=== PATIENT | female | born 1995 | race African-American/Black ===

== ENCOUNTER 2019-11-11 13:59 | Emergency (ER) | payer OTHER ==
[2019-11-11 14:10] VITALS: PULSE 98; BMI 33.5
[2019-11-11] MEDS ORDERED: SODIUM CHLORIDE 1,000 ML IV STA (15:04)
[2019-11-11] MEDS ORDERED: ACETAMINOPHEN 1000 MG/100 ML VIAL (NON FORMULARY) IVPB ONE (15:04)
--- NOTE | 2019-11-11 15:21 | PDOC ---
History of Present Illness - General Chief Complaint: Headache Stated Complaint: CHRONIC HEADACHE Time Seen by Provider: 11/11/19 14:51 History Source: Patient Exam Limitations: No Limitations - History of Present Illness Initial Comments: 11/11/19 15:06 23-year-old female presents to the ED with complaints of frontal throbbing pressure for the past 3 days without resolution. Patient states has not taken anything for the pain and continues to drink fluids. Patient is currently 34 weeks with her last ultrasound being at 20 weeks of gestation. Patient denies fever, chills, sinus pressure, visual disturbances, nausea, vomiting, recent travel, or recent illness. Timing/Duration: reports: other Severity: Yes: moderate Associated Symptoms: reports: other Past History - Travel Traveled outside of the country in the last 30 days: No Close contact w/someone who was outside of country & ill: No - Past Medical History Allergies/Adverse Reactions: Allergies Allergy/AdvReac Type Severity Reaction Status Date / Time peanut Allergy Verified 11/11/19 16:04 CVA: No COPD: No CHF: No DVT: No Dementia: No - Immunization History Immunization Up to Date: Yes - Psycho Social/Smoking Cessation Hx Smoking History: Never smoked Hx Alcohol Use: No Drug/Substance Use Hx: No Patient Lives Alone: No Lives with/in: spouse/SO Review of Systems - Review of Systems Able to Perform ROS?: Yes Constitutional: No: Symptoms Reported HEENTM: No: Symptoms Reported Respiratory: No: Symptoms reported Cardiac (ROS): No: Symptoms Reported ABD/GI: No: Symptoms Reported : No: Symptoms Reported Musculoskeletal: No: Symptoms Reported Integumentary: No: Symptoms Reported Neurological: Yes: Headache. No: Numbness, Weakness Endocrine: No: Symptoms Reported Hematologic/Lymphatic: No: Symptoms Reported *Physical Exam - Vital Signs Last Vital Signs Temp Pulse Resp BP Pulse Ox 97.8 F 98 H 17 128/83 100 11/11/19 14:08 11/11/19 14:08 11/11/19 14:08 11/11/19 14:08 11/11/19 14:08 - Physical Exam General Appearance: Yes: Nourished, Appropriately Dressed. No: Apparent Distress HEENT: negative: Pale Conjunctivae Neck: positive: Supple Respiratory/Chest: positive: Lungs Clear, Normal Breath Sounds. negative: Respiratory Distress, Accessory Muscle Use Cardiovascular: positive: Regular Rhythm, Regular Rate. negative: Murmur Gastrointestinal/Abdominal: positive: Soft. negative: Tenderness Integumentary: positive: Normal Color, Warm, Moist Neurologic: positive: Motor Strength 5/5 (Ambulatory) ED Treatment Course - LABORATORY CBC & Chemistry Diagram: 11/11/19 15:30 11/11/19 15:30 Medical Decision Making - Medical Decision Making 11/11/19 15:26 Chief complaint: Frontal throbbing headache for the past 3 days without associated symptoms. Patient currently 34 weeks and no complications with this exam: Vital signs stable no neurofocal deficit. Plan: Urine, IV fluids IV Tylenol and basic labs ordered. Patient will have bedside ultrasound done by Resident 11/11/19 16:57 Laboratory Tests 11/11/19 11/11/19 11/11/19 15:30 15:30 15:30 WBC 8.5 Hgb 10.7 Hct 32.2 L RDW 16.4 H Sodium 138 Potassium 3.7 Chloride 108 H Carbon Dioxide 23 Anion Gap 7 L BUN 3.0 L Creatinine 0.5 L Random Glucose 61 L Calcium 8.7 Magnesium 1.7 L Total Bilirubin 0.3 AST 19 ALT 23 Alkaline Phosphatase 116 Albumin 2.9 L Urine Ketones Urine Blood Urine Nitrite Urine Bilirubin Ur Leukocyte Esterase 11/11/19 15:30 WBC Hgb Hct RDW Sodium Potassium Chloride Carbon Dioxide Anion Gap BUN Creatinine Random Glucose Calcium Magnesium Total Bilirubin AST ALT Alkaline Phosphatase Albumin Urine Ketones Negative Urine Blood Negative Urine Nitrite Negative Urine Bilirubin Negative Ur Leukocyte Esterase Negative She states feeling better. Patient states did not eat any solids today. Patient given an orange and lupe crackers. Discharge - Discharge Information Problems reviewed: Yes Clinical Impression/Diagnosis: Headache Condition: Improved Disposition: HOME - Follow up/Referral - Patient Discharge Instructions Patient Printed Discharge Instructions: DI for Headache Additional Instructions: Eat small frequent meals throughout the day and drink plenty of fluids. Take Tylenol only for pain - Post Discharge Activity
[2019-11-11 15:47] LABS: BASO % 0.6 % (0-2.0); EOS % 1.9 % (0-4.5); HEMATOCRIT 32.2 % (32.4-45.2); HEMOGLOBIN 10.7 GM/dL (10.7-15.3); LYMPH % 29.5 % (8-40); MCH 25.7 pg (25.7-33.7); MCHC 33.3 g/dl (32.0-36.0); MEAN CELL VOLUME 77.3 fl (80-96); MEAN PLT VOLUME 8.9 fl (7.5-11.1); MONO % 7.2 % (3.8-10.2); NEUT % 60.8 % (42.8-82.8); PLATELET COUNT 242 K/MM3 (134-434); RBC 4.16 M/mm3 (3.60-5.2); RDW 16.4 % (11.6-15.6); URINE APPEARANCE CLEAR; URINE BILIRUBIN NEGATIVE (NEGATIVE); URINE COLOR YELLOW; URINE GLUCOSE (UA) NEGATIVE (NEGATIVE); URINE KETONE NEGATIVE (NEGATIVE); URINE LEUK ESTERASE NEGATIVE (NEGATIVE); URINE NITRITE NEGATIVE (NEGATIVE); URINE PROTEIN NEGATIVE (NEGATIVE); WHITE BLOOD COUNT 8.5 K/mm3 (4.0-10.0)
[2019-11-11 16:19] LABS: ALBUMIN 2.9 g/dl (3.4-5.0); BILIRUBIN,TOTAL 0.3 mg/dL (0.2-1); CALCIUM 8.7 mg/dL (8.5-10.1); CREATININE 0.5 mg/dL (0.55-1.3); POTASSIUM 3.7 mmol/L (3.5-5.1); TOT PROT 6.8 g/dl (6.4-8.2)
[2019-11-11 17:51] VITALS: BP 143/82; TEMP 98.1
== END 2019-11-11 17:25 | disposition home or self-care (01) ==
LOC: JER 13:59
PROC: 3E033NZ Introduction of Analgesics, Hypnotics, Sedatives into Peripheral Vein, Percutaneous Approach (ICD-10-PCS; principal; 2019-11-11)
DX: O26.893 Other specified pregnancy related conditions, third trimester (principal); Z3A.34 34 weeks gestation of pregnancy; R51 Headache; Z91.010 Allergy to peanuts
CPT/HCPCS: 36415; 80053; 81003; 83735; 85025; 87086; 99282-25; J0131; J7030

== ENCOUNTER 2019-12-14 11:25 | Inpatient (IN) | payer OTHER ==
[2019-12-14] MEDS: ELECTROLYTE-148 SOLN 1,000 ML IV SCH ×3 (11:45→19:05)
[2019-12-14] MEDS ORDERED: AMPICILLIN - 2 GM in SODIUM CHLORIDE 100 ML IVPB ONE (12:00)
[2019-12-14] MEDS ORDERED: PROMETHAZINE HCL 25 MG/1 ML VIAL IVPB ONE (12:00)
[2019-12-14] MEDS ORDERED: BUTORPHANOL TARTRATE 1 MG/ML VIAL IVPB ONE ×2 (12:00→12:49)
[2019-12-14] MEDS ORDERED: PROMETHAZINE HCL 25 MG/1 ML VIAL ONE (12:22)
[2019-12-14] MEDS ORDERED: BUTORPHANOL TARTRATE 1 MG/ML VIAL ONE ×2 (12:22)
[2019-12-14 12:42] LABS: BASO % 0.3 % (0-2.0); EOS % 0.5 % (0-4.5); HEMATOCRIT 32.7 % (32.4-45.2); HEMOGLOBIN 10.8 GM/dL (10.7-15.3); MCH 24.4 pg (25.7-33.7); MCHC 33.1 g/dl (32.0-36.0); MEAN CELL VOLUME 73.8 fl (80-96); MEAN PLT VOLUME 9.2 fl (7.5-11.1); NEUT % 71.2 % (42.8-82.8); PLATELET COUNT 223 K/MM3 (134-434); RBC 4.44 M/mm3 (3.60-5.2); RDW 18.1 % (11.6-15.6); WHITE BLOOD COUNT 9.4 K/mm3 (4.0-10.0)
[2019-12-14] MEDS ORDERED: PROMETHAZINE HCL 25 MG/1 ML VIAL IVPUSH ONE (12:49)
[2019-12-14 12:54] LABS: INR 0.94 (0.83-1.09); PROTHROMBIN TIME (PATIENT) 11.1 SEC (9.7-13.0)
[2019-12-14 12:57] LABS: ACTIVATED PTT 27.8 SECONDS (25.2-36.5)
--- NOTE | 2019-12-14 12:58 | HP ---
Past Medical History - Admission Chief Complaint: Labor pain History of Present Illness: 24 yo , @ 39 weeks gestation, EDC 12/20/19, admitted for labor pain. Upon admission she was 2cm dilated with intact membrane. History Source: Patient Limitations to Obtaining History: No Limitations - Past Medical History ...: 2 ...Para: 0 ... Weeks Gestation by Dates: 39 ...EDC by Sono: 12/20/19 - Past Surgical History Hx Myomectomy: No Hx Transabdominal Cerclage: No - Smoking History Smoking history: Never smoked - Alcohol/Substance Use Hx Alcohol Use: No History of Substance Use: reports: None - Social History Usual Living Arrangement: Yes: With Parent Do you think of yourself as: Straight/Heterosexual History of Recent Travel: No Home Medications - Allergies Allergies/Adverse Reactions: Allergies Allergy/AdvReac Type Severity Reaction Status Date / Time peanut Allergy Verified 12/14/19 04:54 - Home Medications Home Medications: Ambulatory Orders Mv-Mn/Iron/FA/Herbal/Digestive [ One Tablet] 1 each PO DAILY 12/14/19 Family Medical History Family History: Unremarkable Review of Systems - Review of Systems Constitutional: reports: No Symptoms Eyes: reports: No Symptoms HENT: reports: No Symptoms Neck: reports: No Symptoms Cardiovascular: reports: No Symptoms Respiratory: reports: No Symptoms Gastrointestinal: reports: No Symptoms Genitourinary: reports: Pain Breasts: reports: No Symptoms Reported Musculoskeletal: reports: No Symptoms Integumentary: reports: No Symptoms Neurological: reports: No Symptoms Endocrine: reports: No Symptoms Hematology/Lymphatic: reports: No Symptoms Psychiatric: reports: No Symptoms Pain Intensity: 8 Physical Exam - Maternity Constitutional: Yes: Well Nourished Eyes: Yes: Conjunctiva Clear HENT: Yes: Atraumatic Neck: Yes: Supple Cardiovascular: Yes: Regular Rate and Rhythm Lungs: Clear to auscultation - Abdominal Exam/OB Number of Fetuses: Single Presentation: Vertex Contractions: Yes Regularity: Regular Intensity: Mod/Strong - Vaginal Exam/OB Presentation: Vertex/Position Station: -2 - Physical Exam Musculoskeletal: Yes: WNL Extremities: Yes: WNL ...Motor Strength: WNL Psychiatric: Yes: Alert, Oriented - Labs Lab Results: CBC, BMP 12/14/19 12:17 Problem List - Problems (1) 39 weeks gestation of Problems reviewed: Yes Code(s): Z3A.39 - 39 WEEKS GESTATION OF (2) Pain during labor Problems reviewed: Yes Code(s): O99.89 - OTH DISEASES AND CONDITIONS COMPL PREG/CHLDBRTH; R52 - PAIN, UNSPECIFIED Assessment/Plan 39 weeks gestation Pain in labor Admit to L&D GBS prophylaxis Analgesia as needed Anticipate
[2019-12-14] MEDS ORDERED: DEXTROSE 5%-LACTATED RINGERS 1,000 ML IV SCH (13:00)
[2019-12-14 13:01] LABS: BILIRUBIN,TOTAL 0.3 mg/dL (0.2-1); BLOOD UREA NITROGEN 3.6 mg/dL (7-18); CALCIUM 8.8 mg/dL (8.5-10.1); CREATININE 0.6 mg/dL (0.55-1.3); POTASSIUM 3.6 mmol/L (3.5-5.1); URIC ACID 3.8 mg/dL (2.6-7.2)
[2019-12-14 13:02] VITALS: BMI 33.3
[2019-12-14] MEDS ORDERED: FENTANYL/BUPIVACAINE/NS/PF - PCEA - 50 ML DISP.SYRIN EP ONE ×2 (14:06→18:31)
[2019-12-14] MEDS ORDERED: LIDO 2%/EPI 1:200000 PRESRVFRE (20 ML SDVIAL) ONE ×2 (14:10→22:17)
[2019-12-14] MEDS ORDERED: NALOXONE HCL 0.4 MG/ML VIAL IVPUSH PRN (14:13)
[2019-12-14] MEDS ORDERED: FENTANYL/BUPIVACAINE/NS/PF - PCEA - 50 ML DISP.SYRIN EP SCH ×2 (14:15→15:09)
[2019-12-14 14:47] LABS: URINE APPEARANCE CLEAR; URINE BILIRUBIN NEGATIVE (NEGATIVE); URINE COLOR YELLOW; URINE GLUCOSE (UA) NEGATIVE (NEGATIVE); URINE KETONE 2+ (NEGATIVE); URINE LEUK ESTERASE NEGATIVE (NEGATIVE); URINE NITRITE NEGATIVE (NEGATIVE); URINE PROTEIN TRACE (NEGATIVE); URINE UROBILINOGEN 0.2 mg/dL (0.2-1.0)
[2019-12-14] MEDS ORDERED: AMPICILLIN SODIUM 1 GM VIAL ONE ×2 (16:22→19:09)
[2019-12-14] MEDS: AMPICILLIN - 1 GM in SODIUM CHLORIDE 100 ML IVPB SCH ×2 (16:30→20:01)
[2019-12-14] MEDS ORDERED: CITRIC ACID/SODIUM CITRATE 30 ML UNIT-DOSE CUP PO ONE (21:31)
--- NOTE | 2019-12-14 21:44 | PN ---
Progress Note (short form) - Note Progress Note: 24 yo , @ 39 weeks gestation, EDC 12/20/19, admitted for labor pain. Upon admission she was 2cm dilated with intact membrane. Membrane was ruptured at 15:50pm; she was 4cm dilated. At 21:30 she was re-examined, cervix was 5cm dilated. FHR was nont reassuring; there were evidence of late decelerations Decision made for Extensive discussion with patient Consent signed Anesthesia to see patient Problem List - Problems (1) 39 weeks gestation of Code(s): Z3A.39 - 39 WEEKS GESTATION OF (2) Pain during labor Code(s): O99.89 - OTH DISEASES AND CONDITIONS COMPL PREG/CHLDBRTH; R52 - PAIN, UNSPECIFIED
[2019-12-14] MEDS ORDERED: ELECTROLYTE-148 SOLN 1,000 ML IV SCH (21:45)
[2019-12-14] MEDS ORDERED: OXYTOCIN 10 UNITS/ML VIAL ONE (22:17)
[2019-12-14] MEDS ORDERED: CEFAZOLIN 2 GM/D5W 2 GM/50 ML ML IVPB ONE (22:17)
[2019-12-14] MEDS ORDERED: OXYTOCIN 20 UNITS in 0.9% NS 20 UNIT/1,000 ML INFUS.BAG IV ONE (22:18)
[2019-12-14] MEDS ORDERED: morphine SULFATE/PF 0.5 MG/ML (2cc Syringe - QUVA) ONE ×4 (22:37)
[2019-12-14] MEDS ORDERED: METHYLERGONOVINE MALEATE 0.2 MG/1 ML AMP IM PRN (23:27)
[2019-12-14] MEDS ORDERED: OXYTOCIN 20 UNITS in 0.9% NS 20 UNIT/1,000 ML INFUS.BAG IV SCH (23:30)
--- NOTE | 2019-12-14 23:30 | OP ---
Operative Note - Note: Operative Date: 12/14/19 Pre-Operative Diagnosis: Non Reassuring Heart Rate Operation: Primary Low transverse Findings: Baby Girl in ROT position Surgeon: Shabnam Trivedi Sandwich Maker: Khurram Mcmanus Anesthesia: Epidural Specimens Removed: Placenta Estimated Blood Loss (mls): 500
[2019-12-14] MEDS ORDERED: ONDANSETRON 4 MG/2 ML VIAL IVPUSH PRN (23:45)
[2019-12-15] MEDS ORDERED: OXYTOCIN 20 UNITS in 0.9% NS 20 UNIT/1,000 ML INFUS.BAG IV ONE (00:23)
[2019-12-15] MEDS: AMPICILLIN - 1 GM in SODIUM CHLORIDE 100 ML IVPB SCH (03:20)
[2019-12-15] MEDS: IBUPROFEN 800 MG/8 ML IJ IVPB PRN ×2 (04:34→12:08)
[2019-12-15 09:17] LABS: BASO % 0.4 % (0-2.0); EOS % 0.2 % (0-4.5); HEMOGLOBIN 8.4 GM/dL (10.7-15.3); LYMPH % 19.6 % (8-40); MCH 24.3 pg (25.7-33.7); MCHC 32.3 g/dl (32.0-36.0); MEAN CELL VOLUME 75.4 fl (80-96); MEAN PLT VOLUME 9.6 fl (7.5-11.1); MONO % 7.7 % (3.8-10.2); NEUT % 72.1 % (42.8-82.8); PLATELET COUNT 183 K/MM3 (134-434); RBC 3.45 M/mm3 (3.60-5.2); RDW 18.4 % (11.6-15.6); WHITE BLOOD COUNT 14.6 K/mm3 (4.0-10.0)
[2019-12-15] MEDS: FERROUS SO4 325 MG TABLET (FP) PO SCH ×3 (10:51→22:02)
[2019-12-15] MEDS: PRENATAL VITAMINS W/ FOLIC ACID TABLET (FP) PO SCH (12:43)
--- NOTE | 2019-12-15 15:38 | PN ---
Post Progress Note - Subjective Subjective: 24 yo Para 1, status post primary , seen and evaluated. Doing well Post Day: 1 Type of Delivery: Primary C/S Vital Signs: Vital Signs Temperature 98.0 F 12/15/19 14:00 Pulse Rate 86 12/15/19 14:00 Respiratory Rate 18 12/15/19 14:00 Blood Pressure 125/63 12/15/19 14:00 O2 Sat by Pulse Oximetry (%) 100 12/15/19 00:30 Breast Exam: Yes: Soft Lochia: Yes: Rubra Lochia, amount: Small Extremities: Yes: Calves non-tender Activity: Ambulating - Labs Labs: CBC WBC 14.6 K/mm3 (4.0-10.0) H 12/15/19 07:20 RBC 3.45 M/mm3 (3.60-5.2) L 12/15/19 07:20 Hgb 8.4 GM/dL (10.7-15.3) L 12/15/19 07:20 Hct 26.0 % (32.4-45.2) L D 12/15/19 07:20 MCV 75.4 fl (80-96) L 12/15/19 07:20 MCH 24.3 pg (25.7-33.7) L 12/15/19 07:20 MCHC 32.3 g/dl (32.0-36.0) 12/15/19 07:20 RDW 18.4 % (11.6-15.6) H 12/15/19 07:20 Plt Count 183 K/MM3 (134-434) 12/15/19 07:20 MPV 9.6 fl (7.5-11.1) 12/15/19 07:20 Absolute Neuts (auto) 10.5 K/mm3 (1.5-8.0) H 12/15/19 07:20 Neutrophils % 72.1 % (42.8-82.8) 12/15/19 07:20 Lymphocytes % 19.6 % (8-40) 12/15/19 07:20 Monocytes % 7.7 % (3.8-10.2) 12/15/19 07:20 Eosinophils % 0.2 % (0-4.5) 12/15/19 07:20 Basophils % 0.4 % (0-2.0) 12/15/19 07:20 Nucleated RBC % 0 % (0-0) 12/15/19 07:20 Problem List - Problems (1) 39 weeks gestation of Problems reviewed: Yes Code(s): Z3A.39 - 39 WEEKS GESTATION OF (2) Pain during labor Problems reviewed: Yes Code(s): O99.89 - OTH DISEASES AND CONDITIONS COMPL PREG/CHLDBRTH; R52 - PAIN, UNSPECIFIED (3) Status post primary low transverse section Problems reviewed: Yes Code(s): Z98.891 - HISTORY OF UTERINE SCAR FROM PREVIOUS SURGERY Assessment/Plan Status post primary Stable Ambulation Analgesia as needed Continue routine post op care
[2019-12-15] MEDS: SIMETHICONE 80 MG TAB.CHEW (FP) PO PRN (20:35)
[2019-12-15] MEDS: IBUPROFEN 600 MG TABLET (FP) PO PRN ×2 (20:36→23:40)
[2019-12-15] MEDS ORDERED: BISACODYL 10 MG SUPP.RECT RC PRN (23:27)
[2019-12-16] MEDS: IBUPROFEN 600 MG TABLET (FP) PO PRN ×3 (04:12→18:06)
[2019-12-16] MEDS: SIMETHICONE 80 MG TAB.CHEW (FP) PO PRN (04:12)
--- NOTE | 2019-12-16 09:44 | PN ---
Post Progress Note - Subjective Subjective: 24 yo Para 1 status post primary , seen and evaluated. Doing well Post Day: 2 Type of Delivery: Primary C/S Vital Signs: Vital Signs Temperature 98.0 F 12/16/19 05:15 Pulse Rate 83 12/16/19 05:15 Respiratory Rate 16 12/15/19 21:36 Blood Pressure 118/72 12/16/19 05:15 O2 Sat by Pulse Oximetry (%) 100 12/15/19 00:30 Breast Exam: Yes: Soft Uterus: Yes: Fundus Firm Incision: Yes: Sutures intact Abdomen/GI: Yes: Abdomen soft Lochia: Yes: Rubra Lochia, amount: Small Extremities: Yes: Calves non-tender Activity: Ambulating - Labs Labs: CBC WBC 14.6 K/mm3 (4.0-10.0) H 12/15/19 07:20 RBC 3.45 M/mm3 (3.60-5.2) L 12/15/19 07:20 Hgb 8.4 GM/dL (10.7-15.3) L 12/15/19 07:20 Hct 26.0 % (32.4-45.2) L D 12/15/19 07:20 MCV 75.4 fl (80-96) L 12/15/19 07:20 MCH 24.3 pg (25.7-33.7) L 12/15/19 07:20 MCHC 32.3 g/dl (32.0-36.0) 12/15/19 07:20 RDW 18.4 % (11.6-15.6) H 12/15/19 07:20 Plt Count 183 K/MM3 (134-434) 12/15/19 07:20 MPV 9.6 fl (7.5-11.1) 12/15/19 07:20 Absolute Neuts (auto) 10.5 K/mm3 (1.5-8.0) H 12/15/19 07:20 Neutrophils % 72.1 % (42.8-82.8) 12/15/19 07:20 Lymphocytes % 19.6 % (8-40) 12/15/19 07:20 Monocytes % 7.7 % (3.8-10.2) 12/15/19 07:20 Eosinophils % 0.2 % (0-4.5) 12/15/19 07:20 Basophils % 0.4 % (0-2.0) 12/15/19 07:20 Nucleated RBC % 0 % (0-0) 12/15/19 07:20 Problem List - Problems (1) 39 weeks gestation of Problems reviewed: Yes Code(s): Z3A.39 - 39 WEEKS GESTATION OF (2) Pain during labor Problems reviewed: Yes Code(s): O99.89 - OTH DISEASES AND CONDITIONS COMPL PREG/CHLDBRTH; R52 - PAIN, UNSPECIFIED (3) Status post primary low transverse section Problems reviewed: Yes Code(s): Z98.891 - HISTORY OF UTERINE SCAR FROM PREVIOUS SURGERY Assessment/Plan Status post primary Stable Ambulation Analgesia as needed Continue routine post op care
--- NOTE | 2019-12-16 09:50 | PN ---
Progress Note, Physician Chief Complaint: s.p c section under spinal anesthesia History of Present Illness: post op day one with intrathecal duramorph for post op pain control - Current Medication List Current Medications: Active Medications Acetaminophen (Tylenol -) 650 mg PO Q4H PRN PRN Reason: PAIN LEVEL 4 - 6 Bisacodyl (Dulcolax Suppository -) 10 mg RC PRN PRN PRN Reason: CONSTIPATION Ferrous Sulfate (Feosol -) 325 mg PO BID [facility] Last Admin: 12/15/19 22:02 Dose: Not Given Dextrose/Lactated Ringer's (D5-Lr -) 1,000 mls @ 125 [facility]ls[facility]hr [facility] Last Admin: 12/15/19 03:21 Dose: Not Given Oxytocin/Sodium Chloride (Normal Saline+20 Units Oxytocin -) 20 unit in 1,000 mls @ 125 mls/hr IV ASDIR [facility] Last Admin: 12/15/19 03:22 Dose: Not Given Ibuprofen (Motrin -) 600 mg PO Q4H PRN PRN Reason: PAIN LEVEL 1 - 3 Last Admin: 12/16/19 04:12 Dose: 600 mg Ibuprofen (Caldolor Injection -) 800 mg IVPB Q8H PRN PRN Reason: PAIN LEVEL 4 - 6 Last Admin: 12/15/19 12:08 Dose: 800 mg Methylergonovine Maleate (Methergine Injection -) 0.2 mg IM Q4H PRN PRN Reason: Excessive Bleeding (L&D) Naloxone HCl (Narcan -) 0.4 mg IVPUSH PRN PRN PRN Reason: Sedation Ondansetron HCl (Zofran Injection) 4 mg IVPUSH Q4H PRN PRN Reason: NAUSEA Multivit/Folic Acid/Iron ( Vitamins (Sjr) -) 1 tab PO DAILY [facility] Last Admin: 12/15/19 12:43 Dose: Not Given Simethicone (Mylicon -) 80 mg PO Q4H PRN PRN Reason: GAS Last Admin: 12/16/19 04:12 Dose: 80 mg - Objective Vital Signs: Vital Signs Temperature 98.0 F 12/16/19 05:15 Pulse Rate 83 12/16/19 05:15 Respiratory Rate 16 12/15/19 21:36 Blood Pressure 118/72 12/16/19 05:15 O2 Sat by Pulse Oximetry (%) 100 12/15/19 00:30 Constitutional: Yes: Well Nourished Cardiovascular: Yes: WNL Respiratory: Yes: WNL Gastrointestinal: Yes: WNL Labs: CBC, BMP 12/15/19 07:20 12/14/19 12:17 INR, PTT INR 0.94 (0.83-1.09) 12/14/19 12:17 Assessment/Plan Pain controlled, no nausea or vomiting, no adverse anesthetic complications. dept of anesthesia will sign off care at this time
[2019-12-16] MEDS ORDERED: CEFAZOLIN 1 GM/D5W 1 GM/50 ML BAG IVPB ONE (09:52)
[2019-12-16] MEDS: ACETAMINOPHEN 325 MG TABLET (FP) PO PRN ×2 (09:57→18:06)
[2019-12-16] MEDS: PRENATAL VITAMINS W/ FOLIC ACID TABLET (FP) PO SCH (09:58)
[2019-12-16] MEDS: FERROUS SO4 325 MG TABLET (FP) PO SCH ×2 (09:58→22:58)
[2019-12-17] MEDS: ACETAMINOPHEN 325 MG TABLET (FP) PO PRN ×2 (00:05→08:38)
[2019-12-17] MEDS: IBUPROFEN 600 MG TABLET (FP) PO PRN ×2 (00:06→08:38)
[2019-12-17] MEDS: SIMETHICONE 80 MG TAB.CHEW (FP) PO PRN (00:06)
--- NOTE | 2019-12-17 05:07 | DS ---
Physical Exam-DIRECT RESPONSE CONSULTANT Vital Signs: Vital Signs Temperature 97.6 F 12/16/19 20:17 Pulse Rate 83 12/16/19 20:17 Respiratory Rate 20 12/16/19 20:17 Blood Pressure 130/89 12/16/19 20:17 O2 Sat by Pulse Oximetry (%) 100 12/15/19 00:30 Constitutional: Yes: Well Nourished Eyes: Yes: Conjunctiva Clear HENT: Yes: Atraumatic Neck: Yes: Supple Cardiovascular: Yes: Regular Rate and Rhythm Respiratory: Yes: Regular Gastrointestinal: Yes: Normal Bowel Sounds Vaginal Exam: Yes: Normal Cervix: Yes: Normal Uterus: Yes: Firm Musculoskeletal: Yes: WNL Extremities: Yes: WNL Wound/Incision: Yes: Steri Strips (in place) Neurological: Yes: Alert, Oriented ...Motor Strength: WNL Psychiatric: Yes: Alert, Oriented Labs: CBC, BMP 12/15/19 07:20 12/14/19 12:17 Delivery - Delivery Type of Anesthesia: Epidural EBL (cc): 500 Delivery, Single - Stages of Labor Date 1st Stage Initiatied: 12/14/19 Time 1st Stage Initiated: 09:30 Date of Delivery: 12/14/19 Time of Delivery: 22:49 Time Placenta Delivered: 22:51 - Condition of Deck Engineer/Clock And Watch Hands Dipper Present: Yes Name: Brandi Mack Infant Gender: Female Weight: 6 lb 12 oz Position: Right, OT Total Hours ROM (Hrs/Mins): 7 hours 1 minute - 1 Minute Total Score: 9 5 Minutes Total Score: 9 - Feeding Plan Initial Plan: Elected not to breastfeed exclusively throughout hospitalization Discharge Summary Problems reviewed: Yes Reason For Visit: LABOR Current Active Problems 39 weeks gestation of (Acute) Pain during labor (Acute) Status post primary low transverse section (Acute) Procedures: Principal: Primary Hospital Course: Routine post op care Health Concerns: None Plan of Treatment: Analgesia as needed Ambulation F/U with MD in 2 weeks Goals: Resume normal activities in 4 weeks Condition: Good - Instructions Diet, Activity, Other Instructions: Regular diet No driving, no lifting x 4 weeks F/U with MD in 2 weeks Disposition: HOME - Home Medications Comprehensive Discharge Medication List: Ambulatory Orders Mv-Mn/Iron/FA/Herbal/Digestive [ One Tablet] 1 each PO DAILY 12/14/19
[2019-12-17 08:22] LABS: BASO % 0.5 % (0-2.0); EOS % 1.9 % (0-4.5); HEMATOCRIT 24.5 % (32.4-45.2); HEMOGLOBIN 8.2 GM/dL (10.7-15.3); LYMPH % 31.6 % (8-40); MCH 24.7 pg (25.7-33.7); MCHC 33.5 g/dl (32.0-36.0); MEAN CELL VOLUME 73.7 fl (80-96); MEAN PLT VOLUME 8.7 fl (7.5-11.1); PLATELET COUNT 231 K/MM3 (134-434); RBC 3.32 M/mm3 (3.60-5.2); WHITE BLOOD COUNT 10.7 K/mm3 (4.0-10.0)
[2019-12-17 10:28] VITALS: BP 133/82; PULSE 85; TEMP 98.1
[2019-12-17] MEDS: PRENATAL VITAMINS W/ FOLIC ACID TABLET (FP) PO SCH (11:19)
[2019-12-17] MEDS: FERROUS SO4 325 MG TABLET (FP) PO SCH (11:19)
--- NOTE | 2019-12-17 15:40 | PATH ---
Surgical Pathology Report Patient Name: ROGERS RAIN Med. Rec. 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 Specimen(s) Received PLACENTA Clinical History , 1 SPAB, denies any history Final Diagnosis PLACENTA: THIRD TRIMESTER PLACENTA. TRIVASCULAR CORD. MEMBRANES WITH NO DIAGNOSTIC ABNORMALITIES. Electronically Signed Nella Rodriguez M.D. Gross Description The specimen is received fresh labeled placenta and is a 451 gram, 17.0 x 13.5 x 2.8 cm. placenta with attached membranes and umbilical cord. The attached membranes are white, translucent with focal opacities and insert marginally. The umbilical cord measures 31 cm. in length and averages 1 cm. in diameter. The cord inserts eccentrically, 3 cm. to the nearest margin. No true knots or strictures are identified. Cut surface of the umbilical cord reveals 3 vessels. The surface is shoemaker-blue with minimal fibrin deposition and appropriate caliber vessels. The maternal surface is red-brown with focal defects. Sectioning reveals red-brown, spongy parenchyma. No lesions are identified. [employer] Communications Sergeant sections are submitted in three cassettes as follows: 1- membrane rolls and umbilical cord; 2-3- full thickness sections of placenta. /12/16/2019 [facility]12/16/2019
--- NOTE | 2019-12-18 09:37 | OP ---
DATE OF OPERATION: 12/14/2019 PREOPERATIVE DIAGNOSIS: Non-reassuring heart rate. POSTOPERATIVE DIAGNOSIS: Non-reassuring heart rate. PROCEDURE: Primary low transverse section. SURGEON: Shabnam Trivedi MD MOBILE UI DESIGNER: SANDI Boothe ANESTHESIA: Epidural. COMPLICATIONS: None. ESTIMATED BLOOD LOSS: 500 mL. DESCRIPTION OF PROCEDURE: Patient was taken to the operating room where epidural anesthesia was found to be adequate. Patient was then prepped and draped in proper sterile fashion. A Pfannenstiel skin incision was made and carried down to the underlying layer of fascia. The fascia was incised in the midline and extended laterally. The superior aspect of the fascial incision was then grasped with a Renny clamp, elevated, and the rectus muscle dissected out bluntly. Attention was then turned to the anterior aspect of the fascial incision which, in a similar fashion, was then grasped with Renny clamps, elevated, and the rectus muscle dissected out bluntly. The rectus muscle was then in the midline, and the peritoneum was then identified and entered sharply with the Metzenbaum scissors. This incision was then extended superiorly and inferiorly with good visualization of the bladder. The vesicouterine peritoneum was then grasped with a pickup and entered sharply with the Metzenbaum scissors. This incision was extended laterally and a bladder blade created digitally. The bladder blade was inserted. Then, the lower uterine segment was incised using a 10-blade. This incision was extended laterally and the head delivered atraumatically. Nose and mouth were suctioned and the cord clamped and cut. The was handed to the waiting fish receiver. The placenta was removed manually. The uterus exteriorized and cleared of all clots and debris. The uterine incision was repaired using 0 Biosyn in a running locked fashion. A second layer of the same suture was used as a means to provide excellent hemostasis. Then, the pelvis was then completely irrigated. The uterus was returned to the abdomen. The peritoneum was closed using 2-0 Biosyn. The fascia was reapproximated using 0 Vicryl in a running fashion, and the skin was closed in a subcuticular fashion using 3-0 Vicryl. Patient tolerated procedure well. Patient was then taken to PACU in stable condition. PATHOLOGY: Placenta. Thor [id number]
== END 2019-12-17 13:45 | disposition home or self-care (01) | DRG 540 ==
LOC: JDEL 11:25 → JLDR 11:50 → J3W 12-15 00:50
PROVIDERS: ADMIT Obstetrics & Gynecology; ATTEND Obstetrics & Gynecology
PROC: 10D00Z1 Extraction of Products of Conception, Low, Open Approach (ICD-10-PCS; principal; 2019-12-14)
DX: O36.8330 Maternal care for abnormalities of the fetal heart rate or rhythm, third trimester, not applicable or unspecified (principal); Z3A.39 39 weeks gestation of pregnancy; Z37.0 Single live birth
CPT/HCPCS: 36415; 36600; 80053; 81003; 82803; 84550; 85025; 85610; 85730; 86593; 86850; 86900; 86901; 88307-TC